=== PATIENT | female | born 1965 | race Caucasian/White ===

== ENCOUNTER 2016-12-24 13:33 | Emergency (ER) | payer OTHER ==
[~2016-12-24] VITALS: Ht 157.5 cm; Wt 123.0 kg
[~2016-12-24 13:33] MED LIST: IBUP-1450 PO
[2016-12-24 13:39] VITALS: TEMP 36.5; Ht 157.5 cm; Wt 123.0 kg
[2016-12-24 14:22] LABS: BASO % 0.5 %; BASO ABS # 0.04 K/uL (0-0.2); COMPLETE YES; EOS % 1.6 %; HEMATOCRIT 43.3 % (37-47); IG% 0.1 %; LYMPH % 28.9 %; LYMPH ABS # 2.47 K/uL (1.2-3.4); MEAN CELL VOLUME 91.9 fL (80-100); MEAN CORPUSCULAR HEMOGLOBIN 31.6 pg (25-34); MEAN CORPUSCULAR HGB CONC 34.4 g/dl (32-36); MEAN PLATELET VOLUME 11.8 fL (7.4-10.4); MONO % 5.7 %; NEUT % 63.2 %; PLATELET COUNT 179 K/uL (130-400); RED BLOOD COUNT 4.71 M/uL (4.2-5.4); WHITE BLOOD COUNT 8.56 K/uL (4.8-10.8)
[2016-12-24] MEDS ORDERED: MELO15TA4 PO (14:25)
--- NOTE | 2016-12-24 14:28 | DIAGNOSTIC IMAGING REPORT ---
CHEST ONE VIEW PORTABLE CLINICAL HISTORY: Fever and sepsis. Atypical chest pain. COMPARISON STUDY: 01/24/2015 FINDINGS: The cardiac and mediastinal contours are normal. There is no evidence of focal pulmonary consolidation. There is no evidence of failure. No pleural effusions are visualized.[ IMPRESSION: No active disease in the chest. Electronically signed by: Izaiah Heredia M.D. 12/24/2016 2:26 PM Dictated Date/Time: 12/24/2016 2:26 PM
[2016-12-24 14:40] LABS: ALT/SGPT 33 U/L (12-78); AST/SGOT 14 U/L (15-37); BLOOD UREA NITROGEN 15 mg/dl (7-18); BUN/CREATININE RATIO 17.5 (10-20); CALCIUM 9.2 mg/dl (8.5-10.1); CARBON DIOXIDE 28 mmol/L (21-32); CHLORIDE 105 mmol/L (98-107); CREATININE 0.88 mg/dl (0.60-1.20); GLUCOSE 102 mg/dl (70-99); SODIUM 140 mmol/L (136-145)
[2016-12-24 14:50] LABS: INR 0.9 (0.9-1.1); PARTIAL THROMBOPLASTIN RATIO 1.2; PROTHROMBIN TIME (PATIENT) 9.6 SECONDS (9.0-12.0)
[2016-12-24 14:51] LABS: ALKALINE PHOSPHATASE 79 U/L (45-117); CKMB/CK RATIO 2.2 (0-3.0)
--- NOTE | 2016-12-24 16:27 | EMERGENCY ROOM VISIT NOTE ---
History Report prepared by Vanita: Lilly Godwin Under the Supervision of: Dr. Norris Ko D.O. First contact with patient: 13:59 Chief Complaint: CHEST PAIN Stated Complaint: CHEST PAIN Nursing Triage Summary: Pt states she went to yesterday and was told to come in but didn't. States she had left upper chest pain for a few months and it goes down her left arm sometimes, chest pain in intermittent. Denies nausea, diaphorsis, SOB, dizziness but does have "hot flashes but that could be hormonal" History of Present Illness The patient is a 51 year old female who presents to the Emergency Room with complaints of intermittent left sided chest pain over the past few months. It is located in the left sternal area. Each episode lasts about 1-3 minutes. It is non-exertional. She has felt the chest pain today, but does not have any pain currently. She also complains of intermittent left arm numbness that began yesterday. She notes that the numbness originates in her chest and radiates through her axilla and left arm. Each episode lasts about 3 minutes. The patient admits that she is stressed out at home caring for her elderly father. The patient was seen by her PCP yesterday who recommended that she be seen in the ED yesterday, but she did not decide to come until today. Her blood pressure was high compared to baseline at her PCP's office yesterday. Denies headaches, dizziness, blurred vision, jaw pain, shortness of breath, calf pain, or other complaints. She has a 35 year history of smoking. She smokes between a half pack and a pack of cigarettes a day. Past medical history includes hypertension, diabetes, and hypercholesterolemia, although she is not medicated for any of these conditions. Source of History: patient Onset: a few months ago Position: chest (left) Timing: intermittent Associated Symptoms: + numbness (left arm, intermittent), No SOB, No headache Review of Systems See HPI for pertinent positives & negatives. A total of 10 systems reviewed and were otherwise negative. Past Medical & Surgical Medical Problems: (1) Esophageal Reflux (2) Osteoarthros Nos-Unspec Surgical Problems: (1) History of left knee surgery Family History No pertinent family history Social History Smoking Status: Current Every Day Smoker Marital Status: Housing Status: lives with significant other Current/Historical Medications Scheduled Meloxicam (Mobic), 15 MG PO DAILY Allergies Coded Allergies: Chlorpheniramine (Verified Allergy, Unknown, ., 12/24/16) Phenylpropanolamine (Verified Allergy, Unknown, ., 12/24/16) Physical Exam Vital Signs Date Time Temp Pulse Resp B/P Pulse Ox O2 Delivery O2 Flow Rate FiO2 12/24/16 15:17 72 22 145/94 96 Room Air 12/24/16 15:07 78 12/24/16 13:39 36.5 86 18 134/74 94 Room Air 12/24/16 13:39 Room Air Physical Exam CONSTITUTIONAL/VITAL SIGNS: Reviewed / noted above. GENERAL: Non-toxic in appearance. INTEGUMENTARY: Warm, dry, and [place]. HEAD: Normocephalic. EYES: without scleral icterus or trauma. ENT/OROPHARYNX: clear and moist. LYMPHADENOPATHY/NECK: Is supple without lymphadenopathy or meningismus. RESPIRATORY: Lungs clear and equal. CARDIOVASCULAR: Regular rate and rhythm. GI/ABDOMEN: Soft and nontender. No organomegaly or pulsatile mass. No rebound or guarding. Normal bowel sounds. EXTREMITIES: Warm and well perfused. BACK: No CVA tenderness. NEUROLOGICAL: Intact without focal deficits. PSYCHIATRIC: normal affect. MUSCULOSKELETAL: Normally developed with good muscle tone. Medical Decision & Procedures ER Provider Diagnostic Interpretation: Radiology results as stated below per my review and radiologist interpretation: CHEST ONE VIEW PORTABLE CLINICAL HISTORY: Fever and sepsis. Atypical chest pain. COMPARISON STUDY: 01/24/2015 FINDINGS: The cardiac and mediastinal contours are normal. There is no evidence of focal pulmonary consolidation. There is no evidence of failure. No pleural effusions are visualized.[ IMPRESSION: No active disease in the chest. Electronically signed by: Izaiah Heredia M.D. 12/24/2016 2:26 PM Dictated Date/Time: 12/24/2016 2:26 PM Laboratory Results 12/24/16 13:50 Red Blood Count 4.71, Mean Corpuscular Volume 91.9, Mean Corpuscular Hemoglobin 31.6, Mean Corpuscular Hemoglobin Concent 34.4, Mean Platelet Volume 11.8, Neutrophils (%) (Auto) 63.2, Lymphocytes (%) (Auto) 28.9, Monocytes (%) (Auto) 5.7, Eosinophils (%) (Auto) 1.6, Basophils (%) (Auto) 0.5, Neutrophils # (Auto) 5.41, Lymphocytes # (Auto) 2.47, Monocytes # (Auto) 0.49, Eosinophils # (Auto) 0.14, Basophils # (Auto) 0.04 12/24/16 13:50 Test 12/24/16 13:50 White Blood Count 8.56 K/uL (4.8-10.8) Red Blood Count 4.71 M/uL (4.2-5.4) Hemoglobin 14.9 g/dL (12.0-16.0) Hematocrit 43.3 % (37-47) Mean Corpuscular Volume 91.9 fL (80-100) Mean Corpuscular Hemoglobin 31.6 pg (25-34) Mean Corpuscular Hemoglobin Concent 34.4 g/dl (32-36) Platelet Count 179 K/uL (130-400) Mean Platelet Volume 11.8 fL (7.4-10.4) Neutrophils (%) (Auto) 63.2 % Lymphocytes (%) (Auto) 28.9 % Monocytes (%) (Auto) 5.7 % Eosinophils (%) (Auto) 1.6 % Basophils (%) (Auto) 0.5 % Neutrophils # (Auto) 5.41 K/uL (1.4-6.5) Lymphocytes # (Auto) 2.47 K/uL (1.2-3.4) Monocytes # (Auto) 0.49 K/uL (0.11-0.59) Eosinophils # (Auto) 0.14 K/uL (0-0.5) Basophils # (Auto) 0.04 K/uL (0-0.2) RDW Standard Deviation 47.5 fL (36.4-46.3) RDW Coefficient of Variation 14.0 % (11.5-14.5) Immature Granulocyte % (Auto) 0.1 % Immature Granulocyte # (Auto) 0.01 K/uL (0.00-0.02) Prothrombin Time 9.6 SECONDS (9.0-12.0) Prothromb Time International Ratio 0.9 (0.9-1.1) Activated Partial Thromboplast Time 29.9 SECONDS (21.0-31.0) Partial Thromboplastin Ratio 1.2 D-Dimer 360 ug/L FEU (0-500) Anion Gap 7.0 mmol/L (3-11) Est Creatinine Clear Calc Drug Dose 94.6 ml/min Estimated GFR () 88.2 Estimated GFR (Non- 76.1 BUN/Creatinine Ratio 17.5 (10-20) Calcium Level 9.2 mg/dl (8.5-10.1) Total Bilirubin 0.3 mg/dl (0.2-1) Direct Bilirubin < 0.1 mg/dl (0-0.2) Aspartate Amino Transf (AST/SGOT) 14 U/L (15-37) Alanine Aminotransferase (ALT/SGPT) 33 U/L (12-78) Alkaline Phosphatase 79 U/L (45-117) Total Creatine Kinase 90 U/L (26-192) Creatine Kinase MB 2.0 ng/ml (0.5-3.6) Creatine Kinase MB Ratio 2.2 (0-3.0) Troponin I < 0.015 ng/ml (0-0.045) Total Protein 7.7 gm/dl (6.4-8.2) Albumin 3.9 gm/dl (3.4-5.0) Lipase 122 U/L (73-393) Thyroid Stimulating Hormone (TSH) 2.530 uIu/ml (0.300-4.500) Laboratory results as stated above per my review. ECG Indication: chest pain Rate (beats per minute): 77 Rhythm: normal sinus Findings: no ectopy, other (no acute injury) ED Course 1609: Previous medical records were reviewed. The patient was evaluated in room C7. A complete history and physical examination was performed. I discussed the results and findings with the patient. She verbalized agreement of the treatment plan. The patient was discharged home. Medical Decision the differential was considered includes acute myocardial infarction, acute coronary syndrome, myocarditis, pericarditis, pericardial effusions /tamponad, esophageal perforation, thoracic aortic dissection, pulmonary embolism, pneumonia, pneumothorax, pancreatitis, shingles, acute cholecystitis, perforated abdominal viscus. This is a 51-year-old female who presents to the ED with a chief complaint of chest pain. The patient was referred here by her PCP yesterday. The patient states that she has had some intermittent chest pain that lasts for a couple of minutes for the past few months. It occurred the past couple of days. She states that she also had some left arm numbness. Her symptoms last for only a few minutes and then resolved. She denies any exertional symptoms. She states that it could be related to stress and anxiety. She does not take any medications. A twelve-lead EKG was performed and shows a normal sinus rhythm without ectopy or acute injury. Chest x-ray negative for acute disease. D- dimer is negative. Troponin is negative. TSH was normal. CBC and complete metabolic panel normal. The patient was told results the test. She was advised that her test results are not predictive of any future events. She was advised follow-up with her PCP for stress testing if it is deemed to be necessary. She will return for any recurrence of symptoms or any worsening. Impression Primary Impression: Left sided chest pain Scribe Attestation The scribe's documentation has been prepared under my direction and personally reviewed by me in its entirety. I confirm that the note above accurately reflects all work, treatment, procedures, and medical decision making performed by me. Departure Information Dispostion Home / Self-Care Referrals No Doctor, Assigned (PCP) Patient Instructions My [facility] Additional Instructions Return for any recurrence or worsening of her symptoms. Follow-up with your doctor for recheck and possible stress testing. Testing done here today he has no predictive value of future events. Should you develop any symptoms concerning for heart attack or any other concerns, return immediately for evaluation.
[2016-12-24 16:43] VITALS: BP 129/91; PULSE 84; O2SAT 94
== END 2016-12-24 16:50 | disposition home or self-care (01) ==
LOC: C.EDB 13:35 → C.EDC 16:50
DX: R07.89 Other chest pain (principal); K21.9 Gastro-esophageal reflux disease without esophagitis; M19.90 Unspecified osteoarthritis, unspecified site; F17.200 Nicotine dependence, unspecified, uncomplicated; Z88.8 Allergy status to other drugs, medicaments and biological substances; Z98.890 Other specified postprocedural states

== ENCOUNTER → 2017-01-02 | Outpatient (CLI) | payer OTHER ==
[~2017-01-02] MED LIST changes: -IBUP-1450 PO; +MELO15TA4 PO
== END | disposition home or self-care (01) ==
LOC: C.RDSM 12:49
PROVIDERS: ATTEND Orthopaedic Surgery Sports Medicine
DX: M17.12 Unilateral primary osteoarthritis, left knee (principal)

== ENCOUNTER → 2017-09-23 | Outpatient (CLI) | payer OTHER ==
[~2017-09-23] MED LIST changes: +HYDR-3126 PO; +MELO-84 PO; -MELO15TA4 PO; +PRM625 PO
--- NOTE | 2017-09-23 10:19 | DIAGNOSTIC IMAGING REPORT ---
R HAND MIN 3 VIEWS CLINICAL HISTORY: RIGHT THUMB PAIN pain COMPARISON: None. DISCUSSION: Moderate degenerative change first carpometacarpal joint. All remaining osseous structures are unremarkable. There is no significant periarticular osteopenia. There are no abnormal soft tissue calcifications. There is no evidence for soft tissue swelling. IMPRESSION: Moderate degenerative change first carpometacarpal joint. Otherwise negative study. The above report was generated using voice recognition software. It may contain grammatical, syntax or spelling errors. Electronically signed by: Leonides Lai M.D. 09/23/2017 10:18 AM Dictated Date/Time: 09/23/2017 10:17 AM
== END | disposition home or self-care (01) ==
LOC: C.RDSM 10:08
PROVIDERS: ATTEND Family Medicine
DX: M79.644 Pain in right finger(s) (principal)

== ENCOUNTER 2019-01-22 10:42 | Observation (INO) ==
[2019-01-22] MEDS ORDERED: HYDROmorphone INJ 2 MG/ML SYR/VIAL IV STA (10:59)
[2019-01-22] MEDS ORDERED: LORazepam 1 MG/2 ML VIAL IV STA (11:02)
--- NOTE | 2019-01-22 12:01 | Emergency Department Note ---
Entered by Mabel Murphy acting as a scribe for Norris Ko DO History of Present Illness General Chief complaint: Hip Pain Stated complaint: back, leg & hip pain Time Seen by Provider: 01/22/19 10:53 Source: patient History of Present Illness Onset (ago): day(s) 1 Location: hip (left) Radiation: other (groin) Severity: severe Pain Consistency: + other (persistent) Maximum Pain Intensity: 10 Exacerbated By: + movement and + other (standing) Associated symptoms: no fever/chills (fever) The patient is a 53 year old female that is presenting to the Emergency Room with complaints of persistent left hip pain that was evaluated at the Emergency Room yesterday. The patient reports that the pain is in her left groin and in the muscle surrounding the hip. She states that she unable to bear weight in her left leg and that the pain worsens with movement. She notes that she is only able to find moderate relief standing in a bent over position with her abdomen resting on the bed. She denies fever. The patient presented yesterday with a chief complaint of left hip pain that started at 0230, just under 36 hours ago. Her pain is unchanged from yesterday but persists. She noted pain that is worse with standing and movements, similar to today. Blood work yesterday was unremarkable. A CT scan of her abdomen and pelvis did not show any acute abdominal process. An x-ray of the left hip was normal other than her total hip arthroplasty. A CT of the spine revealed mild to moderate canal narrowing from L3 to S1. She was discharged on Percocet and Flexeril without improvement. Home Medications Home Medications Medication Instructions Recorded Confirmed Type Premarin 0.625 mg PO QAM 09/22/18 01/22/19 History acetaminophen [Tylenol Extra 500 mg PO Q6H PRN 09/22/18 01/22/19 History Strength] albuterol sulfate [Ventolin HFA] 1 puff INHALATION Q4 PRN 09/22/18 01/22/19 History meloxicam 15 mg PO QAM 09/22/18 01/22/19 History cyclobenzaprine 10 mg PO TID PRN #30 tab 01/21/19 01/22/19 Rx oxycodone-acetaminophen [Percocet] 1 tab PO Q6H PRN #20 tab 01/21/19 01/22/19 Rx Allergies Allergy/AdvReac Type Severity Reaction Status Date / Time chlorpheniramine Allergy Mild Rash Verified 01/22/19 11:17 [From Ornade] mivacurium Allergy Mild rash Verified 01/22/19 11:17 phenylpropanolamine Allergy Mild Rash Verified 01/22/19 11:17 [From Ornade] Past Med/Surg History Medical History Anxiety Asthma inhaler prn Diabetes mellitus, type 2 no meds Hyperlipidemia no meds Osteoarthritis Sleep apnea CPAP Surgical History History of arthroscopy of left knee x2 History of carpal tunnel release right hand History of section History of dilatation and curettage History of hysterectomy History of tooth extraction wisdom teeth History of total left hip replacement History of total right hip replacement Status post lumbar spine surgery for decompression of spinal cord L4-L5 Family History Mother Family history of diabetes mellitus Father Family hx colonic polyps Social History Preferred Language: Italian Communication Ability: Effective Beliefs That Will Affect Care: None Current Living Situation: Spouse Feels Safe at Home: Yes Smoking Status: Current every day smoker Tobacco Type: cigarettes Cigarettes Per Day: 20 a day Second Hand Exposure: Yes (parents smoked) Hx Alcohol Use: Yes Alcohol type: hard liquor Hx Substance Use: No Review of Systems See HPI for pertinent positives & negatives. and A total of 10 systems reviewed and were otherwise negative Physical Exam Vital Signs Vital Signs - 24 hr 01/22/19 10:53 01/22/19 11:35 01/22/19 12:29 Temperature 36.3 C L Temperature Source Oral Sepsis Recent Fever Within 48 Hours No Sepsis Action Taken by Nursing No Action Required Pulse Rate 79 Pulse Rate [Left] 74 76 Pulse Rhythm Regular Pulse Strength Normal Respiratory Rate 18 20 16 Respiratory Effort / Characteristics Non-Labored Spontaneous Non-Labored Non-Labored Respiratory Depth Normal Normal Normal Respiratory Pattern Regular Blood Pressure 218/107 H Blood Pressure [Right Arm] 166/93 H 153/91 H Blood Pressure Mean 144 Blood Pressure Mean [Right Arm] 117 111 Blood Pressure Position Lying Pulse Oximetry 98 92 92 Oxygen Delivery Method Room Air Room Air Nasal Cannula Oxygen Flow Rate 2 01/22/19 14:04 Temperature Temperature Source Sepsis Recent Fever Within 48 Hours Sepsis Action Taken by Nursing Pulse Rate Pulse Rate [Left] 88 Pulse Rhythm Pulse Strength Respiratory Rate 18 Respiratory Effort / Characteristics Non-Labored Respiratory Depth Normal Respiratory Pattern Blood Pressure Blood Pressure [Right Arm] 155/102 H Blood Pressure Mean Blood Pressure Mean [Right Arm] 119 Blood Pressure Position Pulse Oximetry 97 Oxygen Delivery Method Nasal Cannula Oxygen Flow Rate 2 CONSTITUTIONAL/VITAL SIGNS: Reviewed / noted above. GENERAL: Non-toxic in appearance. Patient is standing at the bedside flexed at the waist laying on her belly on top of the bed. Appears to be in moderate pain. INTEGUMENTARY: Warm, dry, and [place]. HEAD: Normocephalic. EYES: without scleral icterus or trauma. ENT/OROPHARYNX: clear and moist. LYMPHADENOPATHY/NECK: Is supple without lymphadenopathy or meningismus. RESPIRATORY: Lungs clear and equal. CARDIOVASCULAR: Regular rate and rhythm. GI/ABDOMEN: Soft and nontender. No organomegaly or pulsatile mass. No rebound or guarding. Normal bowel sounds. EXTREMITIES: Warm and well perfused. Pain with movement of the left leg with pain localized to the left hip. Left leg does not reveal any significant or asymmetrical swelling. There is no redness or rash in the area. BACK: No CVA tenderness. NEUROLOGICAL: Intact without focal deficits. PSYCHIATRIC: normal affect. MUSCULOSKELETAL: Normally developed with good muscle tone. Course 1053:The patient was evaluated in room C04. A complete history and physical examination was performed. 1405: I updated the patient on her current lab and imaging results. The patient's symptoms have not improved. 1423: I reviewed the patient's case with Dr. Juan Marie [facility], who will evaluate the patient for further management. 1430: I discussed laboratory and radiographic results with the patient. She verbalized agreement of the treatment plan. The patient will be evaluated for further management and care. Administered Medications Discontinued Medications Hydromorphone HCl (Dilaudid) 2 mg IV NOW STA Stop: 01/22/19 11:00 Last Admin: 01/22/19 11:21 Dose: 2 mg Documented by: [id number] Lorazepam (Ativan) 1 mg in 2 mls @ 2 mls/min IV NOW STA Stop: 01/22/19 11:03 Last Admin: 01/22/19 11:40 Dose: 2 mls/min Documented by: [id number] Medical Decision Making Differential Diagnosis Differential diagnosis: Etiologies such as fracture, dislocation, neurovascular compromise, compartment syndrome, soft tissue injury, infection, septic hip, sciatica as well as others were entertained. Medical Records Attestation: I reviewed the patient's medical records. Home Medications Current Medication List: was personally reviewed by me Laboratory Data Attestation: I reviewed the patient's lab results. Result diagrams: 01/22/19 13:12 Lab Results 01/22/19 01/22/19 01/22/19 Range/Units 13:12 13:12 13:14 WBC 10.89 H (4.8-10.8) K/uL RBC 4.59 (4.2-5.4) M/uL Hgb 14.9 (12.0-16.0) g/dL Hct 43.3 (37-47) % MCV 94.3 (80-100) fL MCH 32.5 (25-34) pg MCHC 34.4 (32-36) g/dL RDW Std Deviation 48.7 H (36.4-46.3) fL RDW Coeff of Tiff 14.3 (11.5-14.5) % Plt Count 162 (130-400) K/uL MPV 11.3 H (7.4-10.4) fL Immature Gran % (Auto) 0.2 % Neut % (Auto) 78.6 % Lymph % (Auto) 14.0 % Wilkinson % (Auto) 6.5 % Eos % (Auto) 0.4 % Baso % (Auto) 0.3 % Immature Gran # (Auto) 0.02 (0.00-0.02) K/uL Neut # (Auto) 8.56 H (1.4-6.5) K/uL Lymph # (Auto) 1.53 (1.2-3.4) K/uL [place]kinson # (Auto) 0.71 H (0.11-0.59) K/uL Eos # (Auto) 0.04 (0-0.5) K/uL Baso # (Auto) 0.03 (0-0.2) K/uL ESR 20 (0-21) mm/hr C-Reactive Protein 1.55 H (0-0.29) mg/dl Imaging Data Radiologist's Impression: Radiology results as stated below per my review and the radiologist's interpretation: CT hip LT wo con CT DOSE: 926.37 mGy.cm HISTORY: Pain left hip pain TECHNIQUE: Multiaxial CT images of the left hip were performed and reformatted in the sagittal and coronal plane without the use of contrast. A dose lowering technique was utilized adhering to the principles of ALARA. COMPARISON: 01/21/2019 FINDINGS: No fracture or dislocation. Soft tissues are unremarkable. Post total left hip arthroplasty. Longstem femoral prosthetic. Cortical margins appear to be intact. No evidence for acetabular protrusion. IMPRESSION: Negative study post total left hip arthroplasty. The above report was generated using voice recognition software. It may contain grammatical, syntax or spelling errors. Electronically signed by: Leonides Lai M.D. 01/22/2019 12:34 PM US venous doppler LE LT CLINICAL HISTORY: left hip/leg pain PAIN. EDEMA. COMPARISON STUDY: No previous studies for comparison. FINDINGS: Real-time and color flow Doppler imaging were performed. Flow was seen within the femoral, popliteal and calf veins with no intraluminal thrombus demonstrated. The saphenous vein is patent. IMPRESSION: No evidence of deep venous thrombosis. The above report was generated using voice recognition software. It may contain grammatical, syntax or spelling errors. Electronically signed by: Leonides Lai M.D. 01/22/2019 2:03 PM Blood Pressure Blood Pressure Findings: Elevated blood pressure MDM Narrative This is a 53-year-old female who I saw yesterday in the emergency department. She presents today with a chief complaint of continued left hip pain. She had an extensive evaluation yesterday including blood work as well as CT scan of the abdomen pelvis, CT scan of the lumbar spine and x-ray of the left hip. No clear cause was found for the patient's significant pain. She was discharged on pain medication and muscle relaxers but this did not help. The patient prefers to be standing by the bedside flexed at the waist laying on the bed on her abdomen and chest. She has increased pain in the left hip with movement. She has history of bilateral arthroplasties. She also has history of back surgery in the past. None of her surgery was done by a local surgeon. She states that her back surge ry was done in [place] and her hip surgery was done by a now retired orthopedist from [place]. The patient's exam is essentially the same as it was yesterday. She has pain in the left hip with movement of the left hip area. The patient was not able to tolerate MRI of her lumbar spine and hip today because she would move during the MRI, yet she would fall asleep and placed into the ED bed after being removed from the MRI. We did do a CT scan of the left hip. There was no evidence of acute abnormality there. Repeat blood work reveals a mild elevation the white blood cell count. She also has a minimally elevated CRP and a normal sed rate. The patient had an ultrasound of her leg to rule out DVT. There was no evidence of DVT. She was treated with IV Dilaudid 2 mg as well as IV Ativan prior to the MRI. She seems drowsy on reexam but still seems to have some discomfort in the left hip area. Because of continued symptoms and unclear cause for the patient pain, the patient will be seen by the hospitalist for pain control and possible consultation with orthopedic/pain management for further assessment. Impression & Plan Left hip pain The girishibe's documentation has been prepared under my direction and personally reviewed by me in its entirety. I confirm that the note above accurately reflects all work, treatment, procedures, and medical decision making performed by me.
--- NOTE | 2019-01-22 12:36 | CT Scan Report ---
CT hip LT wo con CT DOSE: 926.37 mGy.cm HISTORY: Pain left hip pain TECHNIQUE: Multiaxial CT images of the left hip were performed and reformatted in the sagittal and co nat plane without the use of contrast. A dose lowering technique was utilized adhering to the prin ciples of MALA. COMPARISON: 01/21/2019 FINDINGS: No fracture or dislocation. Soft tissues are unremarkable. Post total left hip arthroplasty . Longstem femoral prosthetic. Cortical margins appear to be intact. No evidence for acetabular protr usion. IMPRESSION: Negative study post total left hip arthroplasty. The above report was generated using voice recognition software. It may contain grammatical, syntax or spelling errors. Electronically signed by: Leonides Lai M.D. 01/22/2019 12:34 PM
[2019-01-22 13:25] LABS: Basophils # (auto) 0.03 K/uL (0-0.2); Basophils % (auto) 0.3 %; Eosinophils # (auto) 0.04 K/uL (0-0.5); Eosinophils % (auto) 0.4 %; Hematocrit (blood only) 43.3 % (37-47); Hemoglobin 14.9 g/dL (12.0-16.0); Immature Granulocytes # (auto) 0.02 K/uL (0.00-0.02); Immature Granulocytes % (auto) 0.2 %; Lymphocytes # (auto) 1.53 K/uL (1.2-3.4); Mean Corpuscular Hgb Conc 34.4 g/dL (32-36); Mean Corpuscular Volume 94.3 fL (80-100); Mean Platelet Volume 11.3 fL (7.4-10.4); Monocytes # (auto) 0.71 K/uL (0.11-0.59); Monocytes % (auto) 6.5 %; Neutrophils # (auto) 8.56 K/uL (1.4-6.5); Neutrophils % (auto) 78.6 %; Platelet Count 162 K/uL (130-400); RDW Coefficient of Variation 14.3 % (11.5-14.5); RDW Standard Deviation 48.7 fL (36.4-46.3); Red Blood Count 4.59 M/uL (4.2-5.4); White Blood Count 10.89 K/uL (4.8-10.8)
[2019-01-22 13:43] LABS: C Reactive Protein 1.55 mg/dl (0-0.29)
--- NOTE | 2019-01-22 14:04 | Ultrasound Report ---
US venous doppler LE LT CLINICAL HISTORY: left hip/leg pain PAIN. EDEMA. COMPARISON STUDY: No previous studies for comparison. FINDINGS: Real-time and color flow Doppler imaging were performed. Flow was seen within the femoral, popliteal and calf veins with no intraluminal thrombus demonstrated. The saphenous vein is patent. IMPRESSION: No evidence of deep venous thrombosis. The above report was generated using voice recognition software. It may contain grammatical, syntax or spelling errors. Electronically signed by: Leonides Lai M.D. 01/22/2019 2:03 PM
--- NOTE | 2019-01-22 15:20 | History & Physical Report ---
Date of Service January 22, 2019 Assessment & Plan (1) Acute pain of left hip: Acute-onset on Thursday at 2am (waking her from sleep). No lab or imaging findings to indicate an underlying etiology. Has had bilateral hip replacements in ~2003 for the left and and ~2005 for the right due to avascular necrosis. Family does not recall ever having a reason for why she had avascular necrosis (no long-term steroid use or DM). - Pain management - Orthopedics consult with [facility] as she sees Dr. Gonzalez as an outpatient. - Attempted MRI in the ED. She was given Dilaudid and Ativan for it; however, could not do it due to pain. Given her body habitus and possible EDENILSON, will hold off on re-ordering it unless orthopedics wants it as we may need a secure airway if her respiratory status is depressed further with more pain medication. (2) Avascular necrosis: As above, told she had it in 2003 with her hip replacements. No known cause. - Plan as above (3) Sleep apnea: Patient did not mention it, but in chart. - CPAP QHS (4) DVT prophylaxis: Low risk per calculator - SCDs/early ambulation History of Present Illness Primary Care Provider: Krystyna Guzman 53-year-old female with a history of avascular necrosis with bilateral hip replacements who presents with 24 hours of acute onset left hip pain. Patient reports that she was in her normal state of health going to bed on evening. She awoke at 2 AM on Thursday morning with acute onset left-sided hip pa in with mild radiation down the anterior thigh. She reports that pain is a squeezing, 10/10 pain without any ameliorating or exacerbating factors. She was seen in the emergency department on 01/21 and was sent home with Flexeril and Percocet. She and her reports that this did not improve her pain whatsoever. She tells me that the pain is not worse with walking or any particular movement of the hip, but is always there. She reports some nausea and one episode of nonbloody emesis which the family attributes to the pain medication received in the ER yesterday, but otherwise denies any further emesis. She reports some long-standing cough due to a prior flu and her continued smoking. She otherwise denies any other pain including chest pain, abdominal pain, other musculoskeletal pain, shortness of breath, dysuria, polyuria, diarrhea, constipation. She also denies any sort of fevers or chills. Allergies Allergy/AdvReac Type Severity Reaction Status Date / Time chlorpheniramine Allergy Mild Rash Verified 01/22/19 11:17 [From Ornade] mivacurium Allergy Mild rash Verified 01/22/19 11:17 phenylpropanolamine Allergy Mild Rash Verified 01/22/19 11:17 [From Ornade] Home Medications Home Medications Medication Instructions Recorded Confirmed Type Premarin 0.625 mg PO QAM 09/22/18 01/22/19 History acetaminophen [Tylenol Extra 500 mg PO Q6H PRN 09/22/18 01/22/19 History Strength] albuterol sulfate [Ventolin HFA] 1 puff INHALATION Q4 PRN 09/22/18 01/22/19 History meloxicam 15 mg PO QAM 09/22/18 01/22/19 History cyclobenzaprine 10 mg PO TID PRN #30 tab 01/21/19 01/22/19 Rx oxycodone-acetaminophen [Percocet] 1 tab PO Q6H PRN #20 tab 01/21/19 01/22/19 Rx Past Med/Surg History Medical History Anxiety Asthma inhaler prn Diabetes mellitus, type 2 no meds Hyperlipidemia no meds Osteoarthritis Sleep apnea CPAP Surgical History History of arthroscopy of left knee x2 History of carpal tunnel release right hand History of section History of dilatation and curettage History of hysterectomy History of tooth extraction wisdom teeth History of total left hip replacement History of total right hip replacement Status post lumbar spine surgery for decompression of spinal cord L4-L5 Family History Mother Family history of diabetes mellitus Father Family hx colonic polyps Social History Preferred Language: Mohawk Communication Ability: Effective Beliefs That Will Affect Care: None Current Living Situation: Spouse Feels Safe at Home: Yes Smoking Status: Current every day smoker Tobacco Type: cigarettes Cigarettes Per Day: 20 a day Second Hand Exposure: Yes (parents smoked) Hx Alcohol Use: Yes Alcohol type: hard liquor Hx Substance Use: No Review of Systems Constitutional: no fever, no chills and no sweats Eyes: no diplopia Ear, Nose, Mouth, Throat: no ear trauma, no nasal discharge and no dental pain Respiratory: no cough, no chest congestion and no dyspnea Cardiovascular: no chest pain, no dyspnea on exertion, no palpitations and no syncope Gastrointestinal: no abdominal pain, no belching, no constipation, no diarrhea/loose stools, no blood in stools and no melena Musculoskeletal: + joint pain (See HPI); no back pain and no muscle weakness Integumentary: no rash, no skin ulcer and no erythema Neurologic: no generalized weakness, no loss of sensation, no numbness and no paresthesia Psychiatric: no depression and no anxiety Endocrine: no fatigue, no polydipsia and no polyphagia Physical Exam Constitutional: WD/WN, vitals as above + acute distress, + morbidly obese and cooperative Eyes: EOM intact bilaterally; no conjunctival abnormality ENMT: external ear and nose normal, oropharynx normal Neck: trachea midline, no thyromegaly normal visual inspection Respiratory: normal respiratory effort, lungs clear to auscultation no respiratory distress Cardiovascular: RRR, no murmur, no edema Gastrointestinal (Abdomen): Inspection/Auscultation: abdomen normal to inspection; abdomen not distended Musculoskeletal: no cyanosis or clubbing, extremities motor strength 5/5 Skin: no rashes, warm and dry Neurologic: moves all extremities and awake Psychiatric: Orientation: oriented to person and cooperative Eye Contact: good eye contact Results & Data Vital Signs (Past 12 Hours) Vital Signs Temp Pulse Pulse Resp BP BP Pulse Ox 01/22/19 14:52 87 20 145/99 H 96 01/22/19 14:04 88 18 155/102 H 97 01/22/19 12:29 76 16 153/91 H 92 01/22/19 11:35 74 20 166/93 H 92 01/22/19 10:53 36.3 C L 79 18 218/107 H 98
[2019-01-22] MEDS ORDERED: ALBUTEROL HFA 8 GM INHALER INH PRN (16:17)
[2019-01-22] MEDS ORDERED: ACETAMINOPHEN 325 MG TAB PO PRN (16:17)
[2019-01-22] MEDS ORDERED: MoRPHine SULFATE 4 MG/ML 1 ML CARP\\VIAL ONE (16:29)
[2019-01-22 16:59] LABS: Creatinine Clr Calc Pharmacy 131.8 ml/min; Est GFR (African American) 117.5; Est GFR (Non-African American) 101.4
[2019-01-22] MEDS: MoRPHine SULFATE 4 MG/ML 1 ML CARP\\VIAL IV PRN (19:32)
[2019-01-22] MEDS: CYCLOBENZAPRINE HCL 10 MG TAB PO PRN (20:35)
[2019-01-22] MEDS: ENOXAPARIN INJ 40 MG/0.4 ML SYR SQ SCH (21:21)
[2019-01-22] MEDS ORDERED: MoRPHine SULFATE 4 MG/ML 1 ML CARP\\VIAL IV STA (21:29)
[2019-01-23] MEDS: MoRPHine SULFATE 4 MG/ML 1 ML CARP\\VIAL IV PRN ×5 (00:49→14:05)
[2019-01-23] MEDS ORDERED: KETOROLAC 30 MG/ML VIAL IV ONE (01:47)
[2019-01-23] MEDS: ESTROGENS, CONJUGATED 0.625 MG TAB PO SCH (09:00)
[2019-01-23] MEDS: CYCLOBENZAPRINE HCL 10 MG TAB PO PRN (09:00)
[2019-01-23] MEDS: MELOXICAM 7.5 MG TAB PO SCH (09:33)
--- NOTE | 2019-01-23 11:42 | History and Physical Report ---
DATE OF ADMISSION: 01/22/2019 CHIEF COMPLAINT: Left hip pain. HISTORY OF PRESENT ILLNESS: Amie is pleasant. She is 53. Unfortunately, morbidly obese. She was in her usual state of health. Thursday approximately 2 in the morning, got up to use the bathroom, twisted and had excruciating left hip pain in the groin region. She made a trip to the Emergency Room, evaluated and treated and sent home back in for evaluation and then admitted yesterday the 01/22/2019. She is in significant pain a little bit better today with log roll of her left hip. She really did not have much pain. PAST MEDICAL HISTORY: Positive for morbid obesity, avascular necrosis and sleep apnea. No DVT in the past. ALLERGIES: Reviewed. HOME MEDICATIONS: Premarin, Tylenol, Ventolin, Meloxicam and Percocet. MEDICAL HISTORY: Again for asthma, obesity, hyperlipidemia. SURGICAL HISTORY: Arthroscopy of the knee, carpal tunnel, section, D and C, hysterectomy, bilateral hip replacements, lumbar spine surgery and decompression of the spinal cord. SOCIAL HISTORY: Nonsmoker, non-ETOH user. REVIEW OF SYSTEMS: Denies any fevers, sweats, chills. Ear, nose and throat negative. Denies any chest pain, palpitations. No nausea, vomiting. No abdominal pain. She has musculoskeletal left hip pain as described. No back pain, no warmth or erythema. EXAMINATION: VITAL SIGNS: Blood pressure 140/90, pulse regular at 80 beats per minute. LUNGS: Clear to auscultation. CARDIAC: Normal S1, S2. ABDOMEN: Soft, obese, but not distended. EXTREMITIES: Intact x4. She has pain with flexion/extension of the hip. No pain with log roll. The leg lengths to be appropriate. Sensory and vascularity are appropriate as well. There is no adenopathy. X-rays reviewed of her left hip. Excellent positioning. No evidence of stress fracture. The acetabular cup and liner looks excellent. The femoral stem looked superb. There is no pubic rami fracture. IMPRESSION: Musculoskeletal strain/sprain of the abductor musculature of the left hip. PLAN: Includes a physical therapy program home with medication. I think we can get her home today or tomorrow and she will follow up with a hip expert as an outpatient.
[2019-01-23] MEDS ORDERED: HydrALAZINE HCL 20 MG/ML VIAL IV PRN (15:54)
--- NOTE | 2019-01-23 15:54 | Hospitalist Progress Note ---
Date of Service January 23, 2019 Assessment & Plan (1) Acute pain of left hip: Acute-onset on Thursday at 2am (waking her from sleep) after sustaining an injury with twisting. No lab or imaging findings to indicate an underlying etiology. Has had bilateral hip replacements in ~2003 for the left and and ~2005 for the right due to avascular necrosis. Family does not recall ever having a reason for why she had avascular necrosis (no long-term steroid use or DM). CT left hip, CT L-spine without obvious cause of pain. MRI attempted from ER but could not tolerate lying due to pain Pain worse with resisted left hip flexion. Negative log roll. Seen by Ortho and thinks muscular strain, no surgical intervention needed -needs PT--> declines rehab placement -pain control--> try to get off IV morphine -start Percocet 10mg q6h and encouraged to not use IV morphine -encouraged ambulation once pain is controlled -Appreciate Ortho consultation and will need outpt f/u with Ortho after discharge -bowel regimen to prevent constipation with being on opioids-added docusate 100mg bid (2) Elevated blood pressure reading: BPs significantly elevated here, no dx of HTN Likely exacerbated by pain -add on IV hydralazine prn for now -if remain elevated despite pain control, may need HCTZ or chlorthalidone -will follow BPs (3) Avascular necrosis: As above, told she had it in 2003 with her hip replacements. No known cause. - Plan as above (4) Sleep apnea: - CPAP QHS (5) Asthma: stable -continue home albuterol prn (6) Obesity: BMI 50.8 -needs weight loss counseling (7) DVT prophylaxis: Low risk per calculator - SCDs/early ambulation Dispo-hopefully to home with Home Health on Thursday after pain control better achieved with po pain meds. has 20/04 care with and daughter Subjective Pt feeling less pain now with the morphine regularly given. Family reports she was screaming and crying in pain x 30 hours prior to coming to the hospital yesterday. She reports pain is worse with sitting and walking, better with lying flat. Has chronic LLE numbness since her hip replacement years ago. No radicular symptoms. Does have some pain radiating from left groin "like a vice" to her medial thigh and knee. No constipation, no abd pain. Her daughter and are at the bedside and report they do not want her coming home today-they want to make sure her pain is controlled at least one day here on po pain meds prior to going home. Pt declines referral to a rehab facility Review of Systems Review of Systems: All systems reviewed & are unremarkable except as noted in HPI & below Physical Exam Constitutional: WD/WN, vitals as above + morbidly obese Eyes: PERRL, conjunctivae normal, anicteric sclerae Neck: trachea midline, no thyromegaly Respiratory: normal respiratory effort, lungs clear to auscultation Cardiovascular: RRR, no murmur, no edema Gastrointestinal (Abdomen): normal bowel sounds, soft, nontender, no hepatosplenomegaly Musculoskeletal: Extremities: extremities normal to inspection; no cyanosis and no clubbing Hip: + joint line tenderness (in left groin); no deformity, no skin erythema, no ecchymosis, normal ROM of hip (pain w/ resisted hip flexion,no pain w/ resisted hip ab/adduction) and log roll test negative Skin: no rashes, warm and dry Neurologic: moves all extremities and awake; no focal motor deficits Psychiatric: A+Ox3, euthymic affect Results & Data Vital Signs (Past 12 Hours) Vital Signs Temp Pulse Resp BP Pulse Ox 01/23/19 14:53 36.5 C 94 H 19 180/97 H 92 01/23/19 07:28 36.7 C 81 21 174/94 H 97 Laboratory Results 01/22/19 01/22/19 Range/Units 13:14 13:14 PT 10.0 (9.0-12.0) Seconds INR 1.0 (0.9-1.1) Creatinine 0.65 (0.6-1.2) mg/dl Est Cr Clr Drug Dosing 131.8 ml/min Est GFR ( Amer) 117.5 Est GFR (Non-Af Amer) 101.[address] hip LT wo con CT DOSE: 926.37 mGy.cm HISTORY: Pain left hip pain TECHNIQUE: Multiaxial CT images of the left hip were performed and reformatted in the sagittal and coronal plane without the use of contrast. A dose lowering technique was utilized adhering to the principles of ALARA. COMPARISON: 01/21/2019 FINDINGS: No fracture or dislocation. Soft tissues are unremarkable. Post total left hip arthroplasty. Longstem femoral prosthetic. Cortical margins appear to be intact. No evidence for acetabular protrusion. IMPRESSION: Negative study post total left hip arthroplasty. LLE DOppler-neg for DVT
[2019-01-23] MEDS: OXYCODONE/ACETAMINOPHEN 5mg/325mg TAB PO PRN ×2 (15:58→22:00)
[2019-01-23] MEDS: DOCUSATE SODIUM 100 MG CAP PO SCH (21:31)
[2019-01-23] MEDS: ENOXAPARIN INJ 40 MG/0.4 ML SYR SQ SCH (21:31)
[2019-01-24] MEDS: OXYCODONE/ACETAMINOPHEN 5mg/325mg TAB PO PRN ×3 (06:09→18:23)
[2019-01-24] MEDS: CYCLOBENZAPRINE HCL 10 MG TAB PO PRN ×3 (07:29→23:10)
[2019-01-24] MEDS: MELOXICAM 7.5 MG TAB PO SCH (08:30)
[2019-01-24] MEDS: ESTROGENS, CONJUGATED 0.625 MG TAB PO SCH (08:30)
[2019-01-24] MEDS: DOCUSATE SODIUM 100 MG CAP PO SCH ×2 (08:30→21:00)
[2019-01-24] MEDS ORDERED: PANTOprazole 40 MG TAB PO STA (12:21)
[2019-01-24] MEDS: dexAMETHasone 4 MG in SYRINGE 0 ML IV SCH ×2 (12:49→20:59)
--- NOTE | 2019-01-24 19:14 | Hospitalist Progress Note ---
Date of Service January 24, 2019 Assessment & Plan (1) Acute pain of left hip: s/p bilateral hip replacements in ~2003 for the left and and ~2005 for the right due to avascular necrosis. CT of left hip with intact hardware; no acute pathology. CT l-spine - mild DJD but no compression fractures. Evaluated by Ortho - thought to have muscle strain of left hip region. Suspect either muscular strain or could have SI joint dysfunction (exquisite pain over left SI joint) with referred pain to the left groin. Doubt l-spine pain with radiculopathy. Percocet 10mg q6h prn. meloxicam 15mg daily. add dexadron 4mg IV q8h. add protonix 40mg daily for GI prophy. of note - sed rate and crp both normal Present on Admission?: Yes (2) Elevated blood pressure reading: follow for now if BPs remain elevated then start BP meds (3) Avascular necrosis: b/l s/p hip replacements in the past (4) Sleep apnea: CPAP QHS (5) Asthma: stable no exacerbation (6) Obesity: BMI 50.8 (7) DVT prophylaxis: lovenox daily worked with PT today- could only walk 15 feet typically she is independent at home not ready for discharge family updated at bedside add senna and miralax for constipation Subjective patient still with considerable left groin pain some of the pain radiates down the anterior aspect of the left thigh towards the knee ("like a shooting pain") denies any pain in lateral aspect of left hip ?mild pain in left lower back no pain down posterior left leg still requiring copious narcotics to stay comfortable Review of Systems Respiratory: no cough Cardiovascular: no chest pain Gastrointestinal: no abdominal pain Neurologic: as per Subjective / HPI, + gait abnormality (leans to left ) and + radiating pain; no paralysis and no numbness Physical Exam 2 Constitutional: + acute distress (only with moving; when at rest she has no pain) and + morbidly obese ENMT: external ear and nose normal, oropharynx normal Respiratory: normal respiratory effort, lungs clear to auscultation Cardiovascular: Rate/Rhythm: regular rate and regular rhythm Heart Sounds: normal S1 and normal S2; no murmur Vessels: posterior tibial pulses present and dorsalis pedis pulses present; no JVD Gastrointestinal (Abdomen): normal bowel sounds, soft, nontender, no hepatosplenomegaly Musculoskeletal: left hip - full ROM with passive ROM. no pain over greater trochanteric bursal region. she has pain with forced adduction. no pain with abduction. minimal pain with flexion. pain reproduced with palpation of left SI joint (exquisite tenderness to palpation). no pain over l-spine spinous processes. no pain over t-spine spinous processes. Skin: no rashes, warm and dry Neurologic: deep tendon reflexes 2+ bilaterally and moves all extremities; no focal motor deficits Psychiatric: A+Ox3, euthymic affect Results & Data Vital Signs (Past 12 Hours) Vital Signs Temp Pulse Pulse Resp BP BP Pulse Ox 01/24/19 15:46 36.5 C 81 22 167/96 H 90 01/24/19 14:03 145/79 H 01/24/19 07:32 36.7 C 90 23 158/100 H 95 (1) Sleep apnea Sleep apnea type: unspecified type Qualified Code(s): G47.30 - Sleep apnea, unspecified (2) Asthma Asthma severity: unspecified severity Asthma persistence: unspecified Asthma complication type: unspecified Qualified Code(s): J45.909 - Unspecified asthma, uncomplicated (3) Obesity Obesity type: unspecified obesity type Serious obesity comorbidity presence: unspecified whether serious comorbidity present Body mass index: BMI 50.0-59.9 Obesity classification: adult class 3 (BMI >= 40) Qualified Code(s): E66.01 - Morbid (severe) obesity due to excess calories; Z68.43 - Body mass index (BMI) 50-59.9, adult
[2019-01-24] MEDS: ENOXAPARIN INJ 40 MG/0.4 ML SYR SQ SCH (20:59)
--- OUTSIDE RECORDS SUMMARY | 2019-01-24 22:37 | External Medical Summary | Continuity of Care Document ---
:1965 Author Name Getachew Kaur, Provider Address Unavailable Unavailable , Care Team Providers Name Role Phone Pili Napoles Unavailable [email or web address] Unavailable Unavailable Unavailable Unavailable Unavailable Assessments Assessed Problems:Epigastric pain Problems Hypertriglyceridemia (272.1) (E78.1) Agitation (307.9) (R45.1) Sleep apnea (780.57) (G47.30) Hyperlipidemia (272.4) (E78.5) Erythrasma (039.0) (L08.1) Myopia (367.1) (H52.10) Unspecified osteoarthritis, unspecified site (715.90) (M19.9 0) Atypical chest pain (786.59) (R07.89) Menopause (627.2) (Z78.0) COPD (chronic obstructive pulmonary disease) (496) (J44.9) Tobacco abuse (305.1) (Z72.0) Early satiety (780.94) (R68.81) Acute epigastric pain (789.06) (R10.13) Type 2 diabetes mellitus (250.00) (E11.9) Nausea (787.02) (R11.0) Acute constipation (564.00) (K59.00) Epigastric pain (789.06) (R10.13) Allergies and Adverse Reactions No Known Allergies (Allergy) Medications DuoNeb 0.5-2.5 (3) MG/3ML SOLN Refills: 0 Cleocin-T 1 % External Gel Refills: 0 hydrOXYzine HCl - 50 MG Oral Tablet Refills: 0 Pantoprazole Sodium 40 MG Oral Tablet De layed Release; TAKE 1 TABLET Daily Take 30 minutes prior to breakfast. SUNG Stanley Start: 03-Sep-2018 Quantity: 30 Refills: 5 Tylenol Extra Strength 500 MG Oral Table t; TAKE 1 TABLET EVERY 4 TO 6 HOURS NEEDED. Start: 03-Sep-2018 Refills: 0 Premarin 0.625 MG Oral Tablet; TAKE 1 TABLET DAILY. Start: 03-Sep-2018 Refills: 0 Meloxicam 15 MG Oral Tablet; TAKE 1 TABLET DAILY. Start: 03-Sep-2018 Refills: 0 Ventolin HFA 108 (90 Base) MCG/ACT Inhal ation Aerosol Solution; INHALE 1 PUFF EVERY 4 HOURS NEEDED. Start: 03-Sep-2018 Refills: 0 8 GM Inhaler Procedures History of hip replacement Status: Compl eted History of Knee Arthroscopy (Therapeutic) Status: Completed History of total hysterectomy abdominal Status: Completed History of Section Status: Comp leted History of carpal tunnel surgery Status: Completed Immunizations Immunizations not documented Family History Grandparent Family history of malignant neoplasm of colon (V16.0) (Z80.0 ) Status: Active uncle Family history of malignant neoplasm of colon (V16.0) (Z80.0 ) Status: Active Mother No pertinent family history (V49.89) (Z78.9) Status: Active Father No pertinent family history (V49.89) (Z78.9) Status: Active Plan of Treatment Planned Observations Planned Goals not documented Results No Known Results Results not documented Encounters Appointment; Pili Stanley CRNP 17-Sep-2018 11:00 Encounter Diagnosis: Problem not documented Appointment; Pili Stanley CRNP 03-Sep-2018 11:00 Encounter Diagnosis: Problem not documented Appointment; Pili Stanley CRNP 11-Nov-2018 10:45 Encounter Diagnosis: Problem not documented
[2019-01-25] MEDS: OXYCODONE/ACETAMINOPHEN 5mg/325mg TAB PO PRN (04:49)
[2019-01-25] MEDS: dexAMETHasone 4 MG in SYRINGE 0 ML IV SCH ×2 (04:50→13:04)
[2019-01-25] MEDS: CYCLOBENZAPRINE HCL 10 MG TAB PO PRN ×2 (07:38→13:04)
[2019-01-25] MEDS: MELOXICAM 7.5 MG TAB PO SCH (07:39)
[2019-01-25] MEDS: ESTROGENS, CONJUGATED 0.625 MG TAB PO SCH (07:39)
[2019-01-25] MEDS: DOCUSATE SODIUM 100 MG CAP PO SCH (07:39)
[2019-01-25] MEDS ORDERED: POLYETHYLENE (MIRALAX) 17 GM PACK PO SCH (09:00)
[2019-01-25] MEDS ORDERED: SENNA 8.6 MG TAB PO SCH (09:00)
--- NOTE | 2019-01-26 06:21 | Discharge Summary ---
Date of Service date of admission - January 22, 2019 date of discharge - January 25, 2019 Admission HPI Per Admitting Provider 53-year-old female with a history of avascular necrosis with bilateral hip replacements who presents with 24 hours of acute onset left hip pain. Patient reports that she was in her normal state of health going to bed on evening. She awoke at 2 AM on Thursday morning with acute onset left-sided hip pain with mild radiation down the anterior thigh. She reports that pain is a squeezing, 10/10 pain without any ameliorating or exacerbating factors. She was seen in the emergency department on 01/21 and was sent home with Flexeril and Percocet. She and her reports that this did not improve her pain whatsoever. She tells me that the pain is not worse with walking or any particular movement of the hip, but is always there. She reports some nausea and one episode of nonbloody emesis which the family attributes to the pain medication received in the ER yesterday, but otherwise denies any further emesis. She reports some long-standing cough due to a prior flu and her continued smoking. She otherwise denies any other pain including chest pain, abdominal pain, other musculoskeletal pain, shortness of breath, dysuria, polyuria, diarrhea, constipation. She also denies any sort of fevers or chills. Principal Diagnosis left hip muscular strain vs left SI joint dysfunction with referred pain to anterior hip vs other Discharge Exam Constitutional + morbidly obese; no acute distress ENMT external ear and nose normal, oropharynx normal Respiratory normal respiratory effort, lungs clear to auscultation Cardiovascular Rate/Rhythm: regular rate and regular rhythm Heart Sounds: normal S1 and normal S2; no murmur Vessels: posterior tibial pulses present and dorsalis pedis pulses present; no JVD Gastrointestinal (Abdomen) normal bowel sounds, soft, nontender, no hepatosplenomegaly Musculoskeletal minimal discomfort over left SI joint to palpation; minimal discomfort with passive ROM of left hip; no tenderness over left trochanteric bursal region Skin no rashes, warm and dry Neurologic deep tendon reflexes 2+ bilaterally and moves all extremities; no focal motor deficits Psychiatric A+Ox3, euthymic affect Discharge Data Allergies Allergy/AdvReac Type Severity Reaction Status Date / Time chlorpheniramine Allergy Mild Rash Verified 01/22/19 11:17 [From Ornade] mivacurium Allergy Mild rash Verified 01/22/19 11:17 phenylpropanolamine Allergy Mild Rash Verified 01/22/19 11:17 [From Ornade] Consultations Orthopedics - Tomasz Gonsales DO PT Ordered Studies 1. b/l hip x-rays: IMPRESSION: 1. No fracture or dislocation within the pelvis or hips. 2. Bilateral total hip arthroplasties. The hardware appears intact. 2. CT left hip: FINDINGS: No fracture or dislocation. Soft tissues are unremarkable. Post total left hip arthroplasty. Longstem femoral prosthetic. Cortical margins appear to be intact. No evidence for acetabular protrusion. 3. CT abd/pelvis: IMPRESSION: 1. Circumferential bladder wall thickening could be due to underdistention or cystitis. Correlate with urinalysis. No other evidence of acute abdominal pathology allowing for noncontrast technique. 2. Density of the liver is borderline for hepatic steatosis. 3. Incidental note made of a left adrenal myelolipoma. 4. Trace emphysema and evidence of small airways disease at the lung bases. 4. LLE venous duplex study negative for DVT. Hospital Course (1) Acute pain of left hip: s/p bilateral hip replacements in ~2003 for the left and and ~2005 for the right due to avascular necrosis. CT of left hip with intact hardware; no acute pathology. CT lumbar-spine - mild DJD but no compression fractures. Sed rate and crp were both normal. Evaluated by Orthopedics - thought to have muscle strain of left hip region. Other possible etiology for the hip pain -- referred pain from SI joint dysfunction (she had exquisite pain over the left SI joint early on in her stay). Doubt lumbar-spine pain with radiculopathy. The patient improved with pain meds, muscle relaxers, NSAIDs, and steroids (especially the steroids). Her overall mobility improved over time as well as her left hip ROM. She will complete a course of oral steroids after discharge and was advised to seek out physical therapy. Follow-up with Dr Gonsales was recommended as well. (2) Elevated blood pressure readinnd to steroids? Or does patient have essential HTN? Advised outpatient follow-up. If BPs remain elevated then consider starting BP meds. (3) Avascular necrosis: b/l s/p hip replacements in the past (4) Sleep apnea: CPAP QHS (5) Asthma: stable no exacerbation while here (6) Obesity: BMI 50.8 weight loss needed Total Time Total Time Spent Total Time Spent (In Minutes): 35 Total Time Includes: Examination of the Patient, Discharge Planning and Medication Reconciliation Discharge Plan Discharge Items Patient Disposition: Home - Self-Care Reason For Visit: LEFT HIP PAIN Discharge Diagnosis: left hip pain - possible muscle strain vs SI joint dysfunction on left side vs combination of factors -- improved Discharge Goals: Decrease discomfort and Therapeutic intervention Activity: As commented below Activity Comment: avoid activities that worsen back/leg pain; avoid strenuous activities Lifting: Gradually increase as tolerated Exercise/Sports: Wait until after follow-up appointment Driving/Machine Use Comment: OK to resume when you are NO LONGER taking narcotic pain killers Non-emergency contact: Primary Care Provider and Surgeon Call non-emergency contact if: you have any medication questions, your symptoms worsen, your pain is not controlled, your pain is worsening and your temperature is above 100.5 Follow-up/Referrals: Tomasz Gonsales DO [Surgeon] - 01/28/19 12:30 pm (Please, follow up at Dr. Tomasz Gonsales's office (orthopedics) on ThursdayJanuary 28 at 12:30 pm. *This office is located at [address] in [place]. If you need to change this appointment, call the office at [phone].) Krystyna Guzman PA-C [Primary Care Provider] - 02/02/19 2:15 pm (Please, follow up with Krystyna Guzman PA-C on ThursdayFebruary 02 at 2:15 pm. *If you need to change this appointment, call the office at [phone].) Diet: Heart Healthy Add Provider Instructions: From Jarrod Casas - Hospitalist - You were treated for left hip/groin pain with muscle relaxers, narcotic pain killers, and steroids. You were evaluated with x-rays and CAT scans of the lower back and left hip. The hardware in the left hip from your prior hip replacement was intact. You were seen by orthopedics, Dr Gonsales, and he felt that you had a muscle strain of the left hip region. You also had significant pain over the left "SI" joint. It is also possible that the SI joint on the left was giving you "referred pain" to the left hip area. Either way you improved over time with steroids, etc. At this point we recommend - 1. follow-up with Dr Gonsales or one of his partners at the orthopedics office in [place] within 1 week 2. attend PT/OT at [facility] in [place]; please bring the hand-written prescription to your first appointment 3. avoid activities that make your pain worse (heavy lifting, strenuous chores, strenuous activities, excessive stair usage, etc) 4. medications - * dexamethasone steroid taper - start this TODAY; follow directions on bottle; take with food * HOLD your meloxicam 15mg tablet while taking the dexamethasone; you can resume the meloxicam when the steroid taper has finished * oxycodone-acetaminophen 1-2 tabs every 6 hours as needed for pain; these are narcotic pain killers -- thus, do not drink alcohol or drive while taking this medication. The oxycodone can make you sleepy and can cause constipation. You will likely need to take constipation medications ([id number]) while on the pain killer * cyclobenzaprine 10mg every 8 hours as needed for pain/muscle pain; try NOT to take the narcotic pain killer and the muscle relaxer together. Do not drive or drink alcohol while taking cyclobenzaprine * the oxycodone has tylenol in it; thus, while on oxycodone, do not take extra [id number] tylenol 5. follow-up -- see your family doctor within 5-[address] Gonsales within 1 week 6. Return to [facility] if - * your pain is uncontrolled despite all of the above medications * you are unable to walk because of pain * you develop fevers over 100.5 degrees * you develop significant numbness or tingling of either leg * any other concerns Prescriptions: New dexamethasone 4 mg tablet 4 mg PO DIRECTED Qty: 10 RF: 0 Continued cyclobenzaprine 10 mg tablet 10 mg PO TID PRN (Reason: muscle spasm) Qty: 30 RF: 0 acetaminophen [Tylenol Extra Strength] 500 mg Tablet 500 mg PO Q6H PRN (Reason: Pain) RF: 0 Premarin 0.625 mg Tablet 0.625 mg PO QAM RF: 0 albuterol sulfate [Ventolin HFA] 90 mcg/actuation Hfa Aerosol Inhaler 1 puff INHALATION Q4 PRN (Reason: Shortness Of Breath) RF: 0 Changed oxycodone-acetaminophen [Percocet] 5-325 mg tablet 1 - 2 tab PO Q6H PRN (Reason: pain) Qty: 20 RF: 0 Discontinued meloxicam 15 mg Tablet 15 mg PO QAM RF: 0 Stand-Alone Forms: [facility], [facility]/Other Patient Handouts: Dexamethasone Oral tablet Discharge Orders: Discharge Order (Routine); Ordered 01/25/19 Ordered By: Jarrod Casas Admission Data Admit Date/Time: 01/22/19 15:07 Attending Provider: Jarrod Casas Admit Provider: Juan Marie Primary Care Provider: Krystyna Guzman Other Providers: Juan Marie ; Tomasz Gonsales Service: Surgical Services Other Interventions: Discharge Summary Assessment (RN) Last Done: 01/25/19 13:17 DC Date/Time DO NOT enter until pt leaves facility: 01/25/19 14:50
== END 2019-01-25 14:50 | disposition home or self-care (01) ==
LOC: 3N 10:42 → ED 10:42 → SUATTDRO 15:07 → 3N 15:49